=== PATIENT | female | born 2000 | race Caucasian/White ===

== ENCOUNTER 2019-12-18 13:04 | Outpatient (CLI) | payer BC, SELFPAY ==
--- NOTE | 2019-12-18 | XR_ITS ---
WS: [id number] CHEST 2 VIEWS HISTORY: COUGH, SHORTNESS OF BREATH COMPARISON: 06/18/2019 Lungs: Clear with no abnormality. No pleural effusion or pneumothorax. Cardiac size: Normal. Mediastinum/Aorta: Normal mediastinum. Bones: Normal. XR/XR chest 2V* [id number] IMPRESSION: Normal chest.
== END 2019-12-18 13:05 | disposition home or self-care (01) ==
LOC: RADOUTREAD 12-19 07:36
PROVIDERS: Family Provider Nurse Practitioner; PCP Nurse Practitioner; Visit Provider Nurse Practitioner Family
DX: Z01.89 Encounter for other specified special examinations (principal)